=== PATIENT | female | born 1980 | race African-American/Black ===

== ENCOUNTER 2017-09-15 17:17 | Emergency (ER) | payer OTHER ==
[~2017-09-15] VITALS: Ht 162.6 cm; Wt 75.3 kg
[2017-09-15 17:56] VITALS: BP 143/73
[2017-09-15] MEDS ORDERED: ALPR1TAB2 PO (18:33)
--- NOTE | 2017-09-15 20:04 | PHYS DOC ---
Past Medical History Past Medical History: Anxiety Past Surgical History: No Surgical History Alcohol Use: Rarely Drug Use: Marijuana Adult General Chief Complaint Chief Complaint: ANXIETY/PANIC ATTACK HPI HPI Patient is a 37 year old female who presents with anxiety. The patient states that she was on a date last night with a man and developed a panic attack. She does have a history of panic attacks but states that she has not had one in months. She moved here to go to school and is away from her psychiatrist. She has run out of Xanax, which is what she normally takes for her anxiety. She states that she will be moving back to [place] in a month and has already called to get an appointment with her normal provider. Review of Systems Review of Systems Constitutional: Denies fever or chills [] Eyes: Denies change in visual acuity, redness, or eye pain [] HENT: Denies nasal congestion or sore throat [] Respiratory: Denies cough or shortness of breath [] Cardiovascular: No additional information not addressed in HPI [] Musculoskeletal: Denies back pain or joint pain [] Integument: Denies rash or skin lesions [] Neurologic: Denies headache, focal weakness or sensory changes [] Endocrine: Denies polyuria or polydipsia [] All other systems were reviewed and found to be within normal limits, except as documented in this note. Physical Exam Physical Exam Constitutional: Well developed, well nourished, no acute distress, non-toxic appearance. [] Cardiovascular:Heart rate regular rhythm, no murmur [] Lungs & Thorax: Bilateral breath sounds clear to auscultation [] Neurologic: Alert and oriented X 3, normal motor function, normal sensory function, no focal deficits noted [] Psychologic: Affect normal, judgement normal, mood slightly anxious. [] Current Patient Data Vital Signs Vital Signs Date Time Temp Pulse Resp B/P (MAP) Pulse Ox O2 Delivery O2 Flow Rate FiO2 09/15/17 17:56 98.5 83 18 97 Room Air 98.5 EKG EKG [] Radiology/Procedures Radiology/Procedures [] Course & Med Decision Making Course & Med Decision Making Pertinent Labs and Imaging studies reviewed. (See chart for details) []1. Anxiety and panic attacks You have been prescribed a small amount of Xanax. Please use this with caution. Maintain your appointment with your psychiatrist for when he returned [place]. It was explained to the patient that we do not refill Xanax in the emergency department although given her special circumstances we will give her a small quantity today. Dragon Disclaimer Dragon Disclaimer This electronic medical record was generated, in whole or in part, using a voice recognition dictation system. Departure Departure Impression: Primary Impression: Panic attack Disposition: HOME, SELF-CARE Condition: STABLE Patient Instructions: Anxiety and Panic Attacks Additional Instructions: All of your psychiatrist in the next week for refill of your anxiety medication. Please return to the ED if worsening. Scripts Alprazolam (XANAX) 1 Mg Tablet 1 MG PO PRN Q6HRS Y for ANXIETY / AGITATION, #10 TAB 0 Refills Prov: EVERETTE RAND APRN 09/15/17 EVERETTE RAND APRN Sep 15, 2017 20:04
== END 2017-09-15 18:40 | disposition home or self-care (01) ==
LOC: ER 17:17
DX: F41.9 Anxiety disorder, unspecified (principal); F41.0 Panic disorder [episodic paroxysmal anxiety]
CPT/HCPCS: 99284